=== PATIENT | female | born 1960 | race Caucasian/White ===

== ENCOUNTER 2021-01-10 08:38 | Outpatient (CLI) | payer OTHER ==
[~2021-01-10] VITALS: Ht 157.5 cm; Wt 140.9 kg
[2021-01-10] VITALS (19 sets, daily range): BP systolic 142–221; BP diastolic 57–91
[~2021-01-10 08:38] MED LIST: ASCO500T4 PO; ASPI325T8 PO; ATEN50TA PO; ATOR40TA59 PO; CALC600T60 PO; CANA300T PO; CHOL100013 PO; FENO145T3 PO; INSU100C SQ; INSU100V13 SQ; LISI1TAB37 PO; METF10007 PO; OMEG1CAP27 PO; OXYC1TAB15 PO; PROM25TA10 PO
[2021-01-10] MEDS ORDERED: LIDOCAINE WITH 8.4% SOD BICARB 3 ML DISP.SYRIN. ONE (09:26)
[2021-01-10] MEDS ORDERED: hydrALAZINE 20 MG/ML VIAL. ONE (09:34)
[2021-01-10] MEDS ORDERED: hydrALAZINE 20 MG/ML VIAL. IVP ONE ×2 (09:45→11:15)
[2021-01-10 09:47] LABS: BASO # 0.1 x10^3/uL (0.0-0.2); BASO % 1 % (0-3); EOS # 0.3 x10^3/uL (0.0-0.7); EOS % 3 % (0-3); HEMATOCRIT 28.1 % (36.0-47.0); HEMOGLOBIN 9.1 g/dL (12.0-15.5); LYMPH # 2.1 x10^3/uL (1.0-4.8); LYMPH % 18 % (24-48); MEAN CORPUSCULAR HEMOGLOBIN 27 pg (25-35); MEAN CORPUSCULAR HGB CONC 32 g/dL (31-37); MEAN CORPUSCULAR VOLUME 83 fL (79-100); MONO # 0.5 x10^3/uL (0.0-1.1); MONO % 4 % (0-9); NEUT # 8.8 x10^3/uL (1.8-7.7); NEUT % 74 % (31-73); PLATELET COUNT 253 x10^3/uL (140-400); RED BLOOD COUNT 3.39 x10^6/uL (3.50-5.40); RED CELL DISTRIBUTION WIDTH 15.3 % (11.5-14.5); WHITE BLOOD COUNT 11.8 x10^3/uL (4.0-11.0)
[2021-01-10 09:54] LABS: PROTHROMBIN TIME PATIENT 12.9 SEC (11.7-14.0)
[2021-01-10 09:56] LABS: CALCIUM 9.1 mg/dL (8.5-10.1); CREATININE 4.2 mg/dL (0.6-1.0); GFR 10.8; POTASSIUM 4.6 mmol/L (3.5-5.1)
[2021-01-10] MEDS ORDERED: INSU300I SQ (10:04)
[2021-01-10] MEDS ORDERED: AMLO10TA4 PO (10:04)
[2021-01-10] MEDS ORDERED: LOSA100T14 PO (10:04)
[2021-01-10] MEDS ORDERED: FURO-68 PO (10:04)
[2021-01-10] MEDS ORDERED: HYDR-2867 PO (10:04)
[2021-01-10] MEDS ORDERED: fentaNYL PF VIAL 100 MCG/2 ML VIAL ONE (10:29)
[2021-01-10] MEDS ORDERED: MIDAZOLAM HCL/PF 2 MG/2 ML VIAL. ONE ×2 (10:29→10:57)
[2021-01-10] MEDS ORDERED: fentaNYL PF VIAL 100 MCG/2 ML VIAL IV ONE (10:45)
[2021-01-10] MEDS ORDERED: MIDAZOLAM HCL/PF 2 MG/2 ML VIAL. IV ONE (10:45)
[2021-01-10] MEDS ORDERED: LIDOCAINE WITH 8.4% SOD BICARB 3 ML DISP.SYRIN. IJ ONE (10:45)
[2021-01-10] MEDS ORDERED: GELATIN SPONGE SIZE 12-7MM SPONGE. ONE (10:56)
[2021-01-10] MEDS ORDERED: GELATIN SPONGE SIZE 12-7MM SPONGE. TP ONE (11:00)
--- NOTE | 2021-01-10 11:05 | RAD ---
PQRS Compliance Statement: One or more of the following individualized dose reduction techniques were utilized for this examinat ion: 1. Automated exposure control 2. Adjustment of the mA and/or kV according to patient size 3. Use of iterative reconstruction technique CT abdomen/pelvis without contrast 01/10/2021 9:32 AM INDICATION: Chronic kidney disease COMPARISON: None available TECHNIQUE: Multiple axial CT images of the abdomen and pelvis were obtained without intravenous contr ast. Coronal and sagittal reformats are provided. FINDINGS: Lung bases are clear. Heart size borderline enlarged. Evaluation of solid abdominal viscera is limite d by lack of intravenous contrast and body habitus. No suspicious hepatic mass. Calcifications within the spleen likely represent sequela of prior granulomatous exposure. Mild hepatomegaly. Right hepati c lobe measures 23 cm along the right mid clavicular line. Pancreas is normal in appearance. Gallblad lay is present without adjacent inflammation. Adrenal glands are normal. Portacaval lymph node measures 6 mm. Abdominal aorta is normal in caliber with mild calcified plaque. Moderate calcified plaque involving the lower extremity arterial system. There is no free fluid or f ree intraperitoneal air. Small and large bowel are normal in caliber. There is no evidence for bowel obstruction. There are no pericolonic inflammatory changes. A normal, nondilated appendix is visualized without adjacent infla mmatory changes. The kidneys are relatively symmetric in appearance. There is no suspicious renal mass within the limi tations of a noncontrast examination. There is no hydronephrosis. There is a 6 mm calculus identified in inferior pole the right kidney. Urinary bladder is within normal limits given degree of distentio n. No suspicious pelvic mass. Uterus and adnexa are normal by CT. There is moderate lumbar spondylosi s with minimal concavity the inferior endplate of L2. This finding appears chronic. IMPRESSION: No findings to suggest obstructive uropathy. Mild hepatomegaly. No acute abnormality in the abdomen and pelvis. 6 mm nonobstructing calculi present inferior pole right kidney. Electronically signed by: Lillie Ku MD (01/10/2021 11:02 AM) [id number]
--- NOTE | 2021-01-10 14:16 | RAD ---
CT-guided biopsy, right kidney 01/10/2021 INDICATION: Chronic kidney disease. Proteinuria. Consent: The procedure was explained in its entirety to the patient or the patients designated repres entative by a member of the treatment team, including a discussion of the risks, benefits and commonl y accepted alternatives to the procedure, as well as the expected consequences of no therapy whatsoev er. Discussion of the risks included, but was not limited to, those that are most frequent and thos e that are rare but possibly severe or life-threatening, as well as the possibility of unforeseen com plications. Procedure: The patient was placed in the prone position. A timeout procedure was performed. The right flank was prepped and draped using sterile barrier technique. 1% lidocaine was administered for loca l anesthesia. Under intermittent CT guidance a 17-gauge needle was advanced into the inferior, vocational education professional ior lateral right renal cortex. Core biopsies were obtained and divided amongst formalin and mickelsl solution. Gelfoam embolization of the biopsy tract was performed as a guiding needle was removed. Re peat CT imaging demonstrated postbiopsy changes without significant hemorrhage or other immediate com plication. The patient remained hemodynamically stable throughout the procedure. Sedation: The procedure was performed under conscious sedation including continuous cardiopulmonary m onitoring via a dedicated sedation nurse. [id number] sedation time: 30 minutes IMPRESSION: CT-guided right kidney biopsy CT DOSING PQRS STATEMENT: One or more of the following individualized dose reduction techniques were utilized for this examinat ion: 1. Automated exposure control 2. Adjustment of the mA and/or kV according to patient size 3. Use of iterative reconstruction technique Electronically signed by: Chirag Hughes MD (01/10/2021 2:14 PM) [id number]
[2021-01-10] MEDS ORDERED: ONDANSETRON PF 4 MG/2 ML VIAL. ONE (14:50)
--- NOTE | 2021-01-10 14:54 | NUR ---
Patient able to use bedban, large amount of loose stool-- patient states this is her baseline and is waiting to have colonoscopy scheduled. Patient able to eat 25% of lunch, then became nauseated and threw up large amount in emesis basin. States she "waited too long to eat". RN notified Dr. Hughes. Bruce given. See EMAR. Patient's nausea subsided. See VS. States she will take her regularly scheduled medications when she gets home.
[2021-01-10] MEDS ORDERED: ONDANSETRON PF 4 MG/2 ML VIAL. IM ONE (15:00)
[2021-01-10] MEDS ORDERED: ACETAMINOPHEN 325 MG TABLET. PO ONE (15:19)
[2021-01-10] MEDS ORDERED: ACETAMINOPHEN 325 MG TABLET. PO PRN (15:30)
--- NOTE | 2021-01-10 15:51 | NUR ---
Patient has continuous complaint of R lower back pain that radiates to front of hip region. RN called Dr. Hughes who came and evaluated patient. Patient states she is uncomfortable in any chair or bed besides her recliner. Pain improved in wheelchair. Dr. Hughes advised patient to eat bland food tonight, continue with Tylenol for pain. Patient states she does not want to be admitted and "is ready to go home". Patient taken to vehicle via wheelchair. Nausea improved. Patient states her pain in back "much better". BP elevated, but stable. MD aware. Patient states she will take home medications shortly.
== END 2021-01-10 15:40 | disposition home or self-care (01) ==
LOC: INTRAD 08:38
PROVIDERS: ATTEND Nurse Practitioner Adult Health
DX: I12.9 Hypertensive chronic kidney disease with stage 1 through stage 4 chronic kidney disease, or unspecified chronic kidney disease (principal); E11.22 Type 2 diabetes mellitus with diabetic chronic kidney disease; N18.9 Chronic kidney disease, unspecified; R16.0 Hepatomegaly, not elsewhere classified; E78.00 Pure hypercholesterolemia, unspecified; M19.90 Unspecified osteoarthritis, unspecified site; Z72.89 Other problems related to lifestyle; Z79.4 Long term (current) use of insulin; Z79.899 Other long term (current) drug therapy; Z98.890 Other specified postprocedural states; Z88.2 Allergy status to sulfonamides; Z88.5 Allergy status to narcotic agent
CPT/HCPCS: 36415; 50200; 74176; 77012; 80048; 85025; 85610; 99152; 99153; J0360; J2250; J2405; J3010; J3490

== ENCOUNTER → 2021-02-27 | Day surgery (SDC) | payer OTHER ==
[~2021-02-27] VITALS: Ht 157.5 cm; Wt 150.0 kg
[~2021-02-27] MED LIST changes: +AMLO10TA4 PO; +FURO-68 PO; +GLYCOPYRROLATE 1 MG/5 ML VIAL. ONE; +HYDR-2867 PO; +INSU300I SQ; +IV NORMAL SALINE 1000ML BAG 1,000 ML IV ONE; +IV RINGERS,LACTATED 1000ML 1,000 ML IV SCH; +LIDOCAINE 2% PF 5 ML VIAL. ONE; +LOSA100T14 PO; +PROPOFOL 10 MG/ML (20ML) VIAL. IV ONE; +ePHEDrine PF IN SALINE 50 MG/10 ML SYRINGE. IV ONE
[2021-02-27 12:47] VITALS: BP 189/67
--- NOTE | 2021-02-27 13:34 | PDOC4 ---
PROCEDURE Procedure Colonoscopy with polypectomies/biopsies. Indication: H/o polyps, diarrhea. Last exam 2015. Meds: per anesthesia. Findings: RENATA normal. --'Scope advanced to cecum. Prep adequate. Mucosa normal. 2, 6-8mm polyps in descending and transverse respectively; both removed with cold snare. Random biopsies from cecum/ascending and rectum. Small IH's on retroflex. Exam otherwise normal. Suman. well. IMP: 2 polyps removed. Internal hemorrhoids. Biopsies pending re: diarrhea. REC: Resume home meds and diet. F/u with me in 2 weeks. Repeat colonoscopy in 5 years. ZIYAD BRADY MD Feb 27, 2021 13:34
[2021-02-27 14:00] VITALS: BP 189/83
--- NOTE | 2021-03-02 08:13 | PATHOLOGY ---
[facility] Accession Number: [id number] . 01 Material submitted: . PART A: colon - CECUM AND ASCENDING POLYP BX. Modifiers: ascending PART B: colon - TRANSVERSE COLON POLYP. Modifiers: transverse PART C: rectum - RECTAL BX PART D: colon - DESCENDING COLON POLYP. Modifiers: descending . 01 Clinical history: . DIARRHEA COLONOSCOPY . 02 Diagnosis: A. Colonic mucosa, cecum and ascending colon biopsies: - No significant pathologic abnormalities. . B. Colon biopsy, transverse colon polyp: - Tubular adenoma. . C. Colorectal mucosa, rectal biopsies: - Focal superficial mucosal epithelial hyperplastic changes. . D. Colon biopsy, descending colon polyp: - Tubular adenoma. . (AMYM:emerson; 03/01/2021) [facility] 03/01/2021 1629 Local . 02 Comment: Sections of the cecum and ascending colon and rectal biopsies show no evidence of a chronic destructive colitis, lymphocytic colitis, or collagenous colitis. . Sections of the transverse colon and descending colon polyp biopsies appear similar and reveal tubular adenomas. There is no high-grade dysplasia or evidence of malignancy. . (JPM:emerson; 03/01/2021) . 02 Electronically signed: . Brendan Martins MD, Pathologist NPI- [id number] . 01 Gross description: . A. The specimen is submitted in formalin, labeled "Dulle, Rachel, cecum and ascending polyp biopsy". Received are multiple segments of pale gordillo tissue ranging in size from 0.3 to 0.5 cm in maximum dimensions. The specimen is submitted in cassette A1. . B. The specimen is received in formalin, labeled "Dulle, Rachel, transverse colon polyp". Received is a single segment of pale gordillo tissue measuring 0.8 cm in maximum dimensions. The specimen is submitted entirely in cassette B1. . C. The specimen is submitted in formalin, labeled "Dulle, Rachel, rectal biopsy". Received are 4 segments of pale gordillo tissue ranging in size from 0.2 to 0.4 cm in maximum dimensions. The specimen is submitted in cassette C1. . D. Each The specimen is received in formalin, labeled "Dulle, Rachel, descending colon polyp". Received is a single segment of pale gordillo tissue measuring 0.4 cm in maximum dimensions. The specimen is submitted entirely in cassette D1. ([facility]; 02/28/2021) NRI/NRI 02/28/2021 1654 Local . 02 Pathologist provided ICD-10: D12.3, D12.4, R19.7 . 02 CPT . 565160, 568037, 458685, [id number] Specimen Comment: A courtesy copy of this report has been sent to [phone] Specimen Comment: Report sent to / DR BUTLER Performed at: 01 [facility] [address], [place] [id number] MD David Monsivais MD Phone: [phone] Performed at: 02 [facility] [address] [place], [place] [id number] MD Brendan Martins MD Phone: [phone]
== END | disposition home or self-care (01) ==
LOC: SURG 12:09 → MERGE 13:00
PROVIDERS: ATTEND Internal Medicine Gastroenterology
DX: R19.7 Diarrhea, unspecified (principal); K64.0 First degree hemorrhoids; D12.3 Benign neoplasm of transverse colon; D12.4 Benign neoplasm of descending colon; K63.89 Other specified diseases of intestine; E66.9 Obesity, unspecified; E78.00 Pure hypercholesterolemia, unspecified; I12.9 Hypertensive chronic kidney disease with stage 1 through stage 4 chronic kidney disease, or unspecified chronic kidney disease; E11.22 Type 2 diabetes mellitus with diabetic chronic kidney disease; N18.9 Chronic kidney disease, unspecified; G47.30 Sleep apnea, unspecified; Z86.010 Personal history of colon polyps; Z85.828 Personal history of other malignant neoplasm of skin; Z87.440 Personal history of urinary (tract) infections; Z79.4 Long term (current) use of insulin; Z79.899 Other long term (current) drug therapy; Z72.89 Other problems related to lifestyle; Z98.890 Other specified postprocedural states; Z88.2 Allergy status to sulfonamides; Z88.5 Allergy status to narcotic agent
CPT/HCPCS: 45380; 45385; 82962; J2704; J3490